=== PATIENT | female | born 1980 | race African-American/Black ===

== ENCOUNTER 2016-07-20 02:01 | Emergency (ER) | payer OTHER ==
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
[~2016-07-20 02:01] MED LIST: AMOXICILLIN; BACTRIM DS TABL1 TA1 PO; HYDROCODON-ACE1 EAC7 PO; KEFLEX500 MG PO; MOTRIN400 MG PO; PRELONE SYRUP PO
== END 2016-07-20 03:10 | disposition home or self-care (01) ==
LOC: CED 02:01
DX: S00.83XA Contusion of other part of head, initial encounter (principal); F17.210 Nicotine dependence, cigarettes, uncomplicated; Z23 Encounter for immunization; Z79.899 Other long term (current) drug therapy; Y08.89XA Assault by other specified means, initial encounter
CPT/HCPCS: 70450; 70486; 90471; 90715; 99284